=== PATIENT | female | born 1945 | race Caucasian/White ===

== ENCOUNTER 2024-07-24 09:32 | Outpatient (CLI) | payer MEDICARE, BC | END 2024-07-24 09:33 | disposition home or self-care (01) | LOC: CSHMAMMO 09:32 | PROVIDERS: ATTEND Internal Medicine Endocrinology, Diabetes & Metabolism | DX: M81.8 Other osteoporosis without current pathological fracture (principal); M85.89 Other specified disorders of bone density and structure, multiple sites | CPT/HCPCS: 77080 ==